=== PATIENT | male | born 1960 | race Caucasian/White ===

== ENCOUNTER 2017-10-02 07:22 | Emergency (ER) | payer OTHER ==
[~2017-10-02] VITALS: Ht 170.2 cm; Wt 92.1 kg
[~2017-10-02 07:22] MED LIST: ADVIL200 M1 PO
[2017-10-02] MEDS ORDERED: GLUCOPHAGE500 MG PO (07:38)
[2017-10-02] MEDS ORDERED: FLOMAX0.4 MG PO (08:42)
[2017-10-02] MEDS ORDERED: ZOFRAN ODT4 MG PO (08:42)
[2017-10-02] MEDS ORDERED: PERCOCET 5-3251 EACH PO (08:42)
== END 2017-10-02 09:10 | disposition home or self-care (01) ==
LOC: ED 07:22
DX: N13.2 Hydronephrosis with renal and ureteral calculous obstruction (principal); E11.9 Type 2 diabetes mellitus without complications; Z87.891 Personal history of nicotine dependence; Z79.84 Long term (current) use of oral hypoglycemic drugs
CPT/HCPCS: 74176; 80053; 81001; 85025; 96374; 96375; 99284; J1885; J2270; J2405

== ENCOUNTER 2021-05-04 10:15 | Emergency (ER) | payer OTHER ==
[~2021-05-04] VITALS: Ht 170.2 cm; Wt 92.1 kg
[~2021-05-04 10:15] MED LIST changes: +FLOMAX0.4 MG PO; +GLUCOPHAGE500 MG PO; +PERCOCET 5-3251 EACH PO; +ZOFRAN ODT4 MG PO
[2021-05-04] MEDS ORDERED: METFORMIN HCL1000 MG PO (11:39)
[2021-05-04] MEDS ORDERED: GLIPIZIDE ER5 MG PO (11:39)
[2021-05-04] MEDS ORDERED: NEURONTIN300 MG PO (12:00)
== END 2021-05-04 12:45 | disposition home or self-care (01) ==
LOC: ED 10:15
DX: M54.32 Sciatica, left side (principal); E11.9 Type 2 diabetes mellitus without complications; Z87.891 Personal history of nicotine dependence; Z79.84 Long term (current) use of oral hypoglycemic drugs; Z79.899 Other long term (current) drug therapy
CPT/HCPCS: 96372; 99283; A9270; J1885

== ENCOUNTER 2023-09-10 17:28 | Emergency (ER) | payer OTHER ==
[~2023-09-10] VITALS: Ht 170.2 cm; Wt 103.1 kg
[~2023-09-10 17:28] MED LIST changes: +GLIPIZIDE ER5 MG PO; +METFORMIN HCL1000 MG PO; +NEURONTIN300 MG PO
--- OUTSIDE RECORDS SUMMARY | 2023-09-10 17:29 | XMS ---
PreManage Notification: NAI MILIAN Security Platform Inspector Events No recent Security Events currently on file CRITERIA MET - PDM CARE PROVIDERS -[facility] Dentist: Leadership Recruiter Current [place] PHONE: [phone] -[place]- Dentist: Leadership Recruiter Current [facility] PHONE: [phone] WINSOME MARX [facility] [place] Current PHONE: Unknown Ana has no Care Guidelines for this patient. E.D. VISIT COUNT (12 MO.) 1 ELLEN Mcgee TOTAL 1 NOTE: Visits indicate total known visits. ED/UCC VISIT TRACKING (12 MO.) 09/10/2023 17:29 ELLEN Crespo OR TYPE: Emergency COMPLAINT: - FLANK PAIN INPATIENT VISIT TRACKING (12 MO.) No inpatient visits to display in this time frame [id number]
[2023-09-10] MEDS ORDERED: KETOROLAC TROMETHAMINE 15 MG/ML VIAL IV ONE (19:45)
[2023-09-10] MEDS ORDERED: ondansetron HCL 4 MG/2 ML VIAL IV ONE (19:45)
[2023-09-10] MEDS ORDERED: fentaNYL citrate 100 MCG/2 ML VIAL IV ONE (19:45)
[2023-09-10] MEDS ORDERED: LACTATED RINGER'S 1,000 ML IV ONE (19:45)
[2023-09-10 19:51] LABS: BASOPHILS 0.4 % (0-2); EOSINOPHILS 1.1 % (0-6); HEMATOCRIT 50.4 % (35.0-50.0); HEMOGLOBIN 16.5 g/dL (12.0-18.0); LYMPHOCYTES 7.5 % (24-44); MCH 32.2 (27-36); MCHC 32.8 g/dl (30-36); MCV 98.1 fl (81-99); MONOCYTES 8.6 % (0-12); NEUTROPHILS 82.4 % (39-80); PLATELET COUNT 224 K/uL (140-440); RBC 5.14 M/ul (4.3-5.7); RDW 15.5 (10.5-15.0)
[2023-09-10 20:06] LABS: ALBUMIN 3.4 g/dL (3.4-5.0); ALBUMIN/GLOBULIN RATIO 0.77 (1.1-2.4); BILIRUBIN, TOTAL 0.4 ng/dL (0.2-1.0); BUN/CREATININE RATIO 10.63 (6.0-28.6); CALCIUM 8.3 mg/dL (8.5-10.1); CREATININE, SERUM 1.41 mg/dL (0.70-1.30); PROTEIN, TOTAL 7.8 g/dL (6.4-8.2)
[2023-09-10] MEDS ORDERED: OZEMPIC1 MG/0.71 SQ (20:19)
[2023-09-10 21:06] LABS: BILIRUBIN, URINE NEGATIVE (negative); BLOOD/HGB, URINE MODERATE (Negative); KETONE, URINE NEGATIVE (Negative); LEUK ESTERASE, URINE SMALL (negative); NITRITE, URINE NEGATIVE (negative); PH, URINE 5.5 (5-7)
[2023-09-10 21:13] LABS: BACTERIA, URINE 1+ /hpf (negative); CASTS, URINE NONE SEEN \\lpf; CRYSTALS, URINE NONE SEEN (0-1+); EPITHELIAL CELLS, URINE SQUAMOUS 1+ /lpf (0-1+); WHITE BLOOD CELLS, URINE 21-40 /HPF (0-5)
[2023-09-10 21:14] LABS: COLLECTION TYPE, URINE CLEAN CATCH; REFLEX CULTURE, URINE Yes (No)
[2023-09-10] MEDS ORDERED: CIPRO500 MG PO (21:19)
[2023-09-10] MEDS ORDERED: FLOMAX0.4 MG PO (21:19)
[2023-09-10] MEDS ORDERED: TAMSULOSIN HCL 0.4 MG CAP PO ONE (21:30)
[2023-09-10] MEDS ORDERED: CIPROFLOXACIN 500 MG TAB PO ONE (21:30)
[2023-09-10] MEDS ORDERED: HYDROCODONE BIT/ACETAMINOPHEN 5/325 MG 1 TAB HOME.PACK PO ONE (21:30)
[2023-09-10 21:35] VITALS: BP 134/71
== END 2023-09-10 21:35 | disposition home or self-care (01) ==
LOC: ED 17:28
PROVIDERS: Internal Medicine
DX: N20.1 Calculus of ureter (principal); E11.9 Type 2 diabetes mellitus without complications; Z87.891 Personal history of nicotine dependence; Z79.84 Long term (current) use of oral hypoglycemic drugs; Z79.899 Other long term (current) drug therapy
CPT/HCPCS: 36415; 74176; 80053; 81001; 85025; A9270; J1885; J2405; J3010; J7121